=== PATIENT | female | born 1990 | race Two or more races ===

== ENCOUNTER 2019-09-21 21:58 | Emergency (ER) | payer OTHER ==
[~2019-09-21] VITALS: Ht 152.4 cm; Wt 99.8 kg
[2019-09-22] MEDS ORDERED: ZOFRAN4 MG PO (05:04)
[2019-09-22] MEDS ORDERED: PEPCID40 MG PO (05:04)
[2019-09-22] MEDS ORDERED: ZYNCOF 20-400120 ML PO (05:04)
[2019-09-22] MEDS ORDERED: KEFLEX500 MG PO (05:04)
== END 2019-09-22 05:14 | disposition home or self-care (01) ==
LOC: ER 21:58
DX: O21.0 Mild hyperemesis gravidarum (principal); O23.31 Infections of other parts of urinary tract in pregnancy, first trimester; Z34.81 Encounter for supervision of other normal pregnancy, first trimester

== ENCOUNTER 2019-12-11 10:49 | Inpatient (IN) | payer OTHER ==
[~2019-12-11] VITALS: Ht 154.9 cm; Wt 230.0 kg
[~2019-12-11 10:49] MED LIST: KEFLEX500 MG PO; PEPCID40 MG PO; ZOFRAN4 MG PO; ZYNCOF 20-400120 ML PO
[2019-12-12] MEDS ORDERED: ALLEGRA ALLERG180 MG PO (07:55)
[2019-12-12] MEDS ORDERED: ATABEX OB TABL1 EACH PO (07:56)
[2019-12-14] MEDS ORDERED: HUMULIN N100 UNIT/2 SUBCUTANEO (16:17)
[2019-12-14] MEDS ORDERED: HumuLIN R 100 UNIT/1 SUBCUTANEO (16:17)
== END 2019-12-14 17:43 | disposition home or self-care (01) | DRG 833 ==
LOC: OB/GYN 10:49
PROVIDERS: ADMIT Obstetrics & Gynecology
PROC: BY4CZZZ Ultrasonography of Second Trimester, Single Fetus (ICD-10-PCS; principal; 2019-12-11)
PROC: 4A1HXCZ Monitoring of Products of Conception, Cardiac Rate, External Approach (ICD-10-PCS; 2019-12-11)
DX: O24.414 Gestational diabetes mellitus in pregnancy, insulin controlled (principal); O13.2 Gestational [pregnancy-induced] hypertension without significant proteinuria, second trimester; Z3A.22 22 weeks gestation of pregnancy
CPT/HCPCS: 240

== ENCOUNTER 2020-02-25 17:42 | Outpatient (CLI) | payer OTHER ==
[~2020-02-25 17:42] MED LIST changes: +ALLEGRA ALLERG180 MG PO; +ATABEX OB TABL1 EACH PO; +HUMULIN N100 UNIT/2 SUBCUTANEO; +HumuLIN R 100 UNIT/1 SUBCUTANEO
[2020-02-25] MEDS ORDERED: PRENATAL TABLE1 EAC3 PO (18:28)
[2020-02-25] MEDS ORDERED: HUMULIN N100 UNIT/2 IJ (18:30)
[2020-02-25] MEDS ORDERED: HUMULIN R500 UNIT/2 (18:31)
== END 2020-02-26 10:35 | disposition home or self-care (01) ==
LOC: OBS/DEL 17:42
PROVIDERS: ATTEND Obstetrics & Gynecology
DX: O26.893 Other specified pregnancy related conditions, third trimester (principal); R51 Headache; O24.410 Gestational diabetes mellitus in pregnancy, diet controlled

== ENCOUNTER 2020-03-24 14:49 | Inpatient (IN) | payer OTHER ==
[~2020-03-24] VITALS: Ht 154.9 cm; Wt 2.3 kg
[~2020-03-24 14:49] MED LIST changes: +HUMULIN N100 UNIT/2 IJ; +HUMULIN R500 UNIT/2; +PRENATAL TABLE1 EAC3 PO
== END 2020-03-27 17:08 | disposition home or self-care (01) | DRG 785 ==
LOC: LDR 14:49 → OB/GYN 14:49
PROVIDERS: ADMIT Obstetrics & Gynecology; ATTEND Obstetrics & Gynecology
PROC: 0UL70ZZ Occlusion of Bilateral Fallopian Tubes, Open Approach (ICD-10-PCS; 2020-03-24)
PROC: 4A1HXCZ Monitoring of Products of Conception, Cardiac Rate, External Approach (ICD-10-PCS; 2020-03-24)
PROC: 10D00Z1 Extraction of Products of Conception, Low, Open Approach (ICD-10-PCS; principal; 2020-03-24 19:15)
DX: O82 Encounter for cesarean delivery without indication (principal); Z3A.37 37 weeks gestation of pregnancy; Z37.0 Single live birth; Z30.2 Encounter for sterilization